=== PATIENT | male | born 1990 | race Hispanic/Latino ===

== ENCOUNTER 2016-12-31 10:55 | Observation (INO) | payer MEDICAID, OTHER ==
[2016-12-31 11:12] VITALS: BMI 27.3
--- NOTE | 2016-12-31 12:49 | ED PDOC ---
HPI: Psych/Substance Abuse Time Seen by Provider: 12/31/16 11:15 Chief Complaint (Nursing): Psychiatric Evaluation Chief Complaint (Provider): Crisis Evaluation History Per: Family (Sister) History/Exam Limitations: no limitations Onset/Duration Of Symptoms: Days (x 3 days) Additional History Per: Patient Additional Complaint(s): Nasir Morales is a 26-year-old male who was brought to the emergency department by his sister for a crisis evaluation, secondary to substance abuse and complaints of auditory and visual hallucinations ongoing for 3 days. Patient himself denies having any medical concerns. Sister reports that the patient has been using substances including the drug Priya and cocaine, and experiences night auditory and visual hallucinations. Patient states he last used Priya 3 weeks ago. Sister states the patient was admitted 2 years ago for similar concerns. Patient is currently on house arrest. PMD: None known Past Medical History Reviewed: Historical Data, Nursing Documentation, Vital Signs Vital Signs: Last Vital Signs Temp 99.5 F 12/31/16 12:00 Pulse 104 H 12/31/16 12:00 Resp 20 12/31/16 12:00 BP 136/90 12/31/16 12:00 Pulse Ox 100 12/31/16 12:00 - Medical History PMH: Asthma (childhood) Denies: Diabetes, Hepatitis, HIV, HTN, Chronic Kidney Disease, Seizures, Sexually Transmitted Disease - Surgical History Surgical History: No Surg Hx - Family History Family History: States: Unknown Family Hx - Social History Current smoker - smoking cessation education provided: Yes Alcohol: Social Drugs: Cocaine, Other (Priya) - Immunization History Hx Tetanus Toxoid Vaccination: No Hx Influenza Vaccination: No Hx Pneumococcal Vaccination: No - Home Medications Home Medications: Ambulatory Orders Medication Instructions Recorded Albuterol HFA [Ventolin HFA 90 2 puff IH Q4H #1 puff 08/20/15 mcg/actuation (8 g)] Polymyxin/Trimethoprim Sulfate 1 drop XX Q6H 10 Days 09/28/15 [Polytrim Ophth Soln] Ibuprofen 600 mg PO Q6 PRN #15 tablet 12/12/15 Nitrofurantoin Macrocrystals 100 mg PO BID 5 Days 01/01/17 [Macrobid] - Allergies Allergies/Adverse Reactions: Allergies Allergy/AdvReac Type Severity Reaction Status Date / Time shrimp Allergy RASH Verified 12/31/16 13:01 Review of Systems ROS Statement: Except As Marked, All Systems Reviewed And Found Negative Psych: Positive for: Other (Unable to sleep, night auditory and visual hallucinations). Negative for: Suicidal ideation (and homicidal ideation) Physical Exam - Reviewed Nursing Documentation Reviewed: Yes Vital Signs Reviewed: Yes - Physical Exam Appears: Positive for: Well, Non-toxic, No Acute Distress Head Exam: Positive for: ATRAUMATIC, NORMAL INSPECTION, NORMOCEPHALIC Skin: Positive for: Normal Color, Warm, Dry Eye Exam: Positive for: Normal appearance Neck: Positive for: Normal, Painless ROM Cardiovascular/Chest: Positive for: Regular Rate, Rhythm Respiratory: Positive for: CNT, Normal Breath Sounds Gastrointestinal/Abdominal: Positive for: Normal Exam, Bowel Sounds, Soft. Negative for: Tenderness Back: Positive for: Normal Inspection Extremity: Positive for: Normal ROM Neurologic/Psych: Positive for: Alert, Oriented - Laboratory Results Result Diagrams: 12/31/16 20:37 12/31/16 20:37 - ECG O2 Sat by Pulse Oximetry: 100 (RA) Pulse Ox Interpretation: Normal Medical Decision Making Medical Decision Making: Time: 13:00 Initial Impression: Crisis Evaluation Initial Plan: * Admit to observation for crisis evaluation Time: 13:01 * Urine Drug Screen * Scribe Attestation: Documented by Shannan Dupont, acting as a scribe for Zakia Alford MD. Provider Scribe Attestation: All medical record entries made by the Scribe were at my direction and personally dictated by me. I have reviewed the chart and agree that the record accurately reflects my personal performance of the history, physical exam, medical decision making, and the department course for this patient. I have also personally directed, reviewed, and agree with the discharge instructions and disposition. ED OBSERVATION Date of observation admission: 12/31/16 Time of observation admission: 13:00 - Observation admission statement Patient is being placed in observation because:: Crisis evaluation - Progress Note Progress Note: 12/31/16 13:20 * Toxicology results positive for cocaine metabolites and THC 12/31/16 14:45 * CMP * Urine dipstick * CBC * CXR * Macrobid 100 mg PO * Urinalysis Disposition - Clinical Impression Clinical Impression: UTI (urinary tract infection), Drug-induced psychotic disorder - Disposition Disposition: Transfer of Care Disposition Time: 17:00 Condition: STABLE Patient Signed Over To: Cynthia Tierney Handoff Comments: Pending medical clearance and [facility] screening.
[2016-12-31 13:54] LABS: BARBITURATES, UR NEGATIVE (NEGATIVE); BENZODIAZEPINES, UR NEGATIVE (NEGATIVE); OPIATES, UR NEGATIVE (NEGATIVE); PHENCYCLIDINE, UR NEGATIVE (NEGATIVE)
[2016-12-31 14:49] LABS: BASO # 0.1 K/uL (0.0-0.2); BASO % 0.4 % (0.0-2.0); EOS # 0.1 K/uL (0.0-0.7); EOS % 0.4 % (0.0-4.0); LYMPH # 3.1 K/uL (1.0-4.3); LYMPH % 15.6 % (20.0-40.0); MEAN CELL VOLUME 86.6 fl (80.0-94.0); MEAN CORPUSCULAR HEMOGLOBIN 29.8 pg (27.0-31.0); MEAN CORPUSCULAR HGB CONC 34.4 g/dL (33.0-37.0); MEAN PLATELET VOLUME 8.4 fl (7.2-11.7); MONO # 2.1 K/uL (0.0-0.8); MONO % 10.8 % (0.0-10.0); NEUT # 14.4 K/uL (1.8-7.0); NEUT % 72.8 % (50.0-75.0); NRBC % 0.1 % (0.0-0.0); RBC 5.05 Mil/uL (4.40-5.90); RED CELL DISTRIBUTION WIDTH 13.1 % (11.5-14.5); WHITE BLOOD COUNT 19.7 K/uL (4.8-10.8)
[2016-12-31 15:03] LABS: SQUAMOUS EPITHIAL < 1 /hpf (0-5); URINE BACTERIA OCC (<OCC); URINE BILIRUBIN NEGATIVE (NEGATIVE); URINE BLOOD SMALL (NEGATIVE); URINE CLARITY SLIGHTY-CLOUDY (Clear); URINE COLOR YELLOW (YELLOW); URINE GLUCOSE (UA) NEG (Normal); URINE LEUKOCYTE ESTERASE SMALL Leu/uL (Negative); URINE NITRATE NEGATIVE (NEGATIVE); URINE PROTEIN 30 mg/dL (NEGATIVE); URINE UROBILINOGEN 0.2-1.0 mg/dL (0.2-1.0)
[2016-12-31 15:10] LABS: ALB/GLOB RATIO 1.6 (1.0-2.1); ALBUMIN 4.9 g/dL (3.5-5.0); ALT/SGPT 46 U/L (21-72); AST/SGOT 75 U/L (17-59); BLOOD UREA NITROGEN 16 mg/dl (9-20); CALCIUM 9.5 mg/dL (8.4-10.2); GFR AFRICAN-AMERICAN > 60; GFR NON-AFRICAN AMERICAN > 60
[2016-12-31] MEDS ORDERED: Potassium Chloride 20 mEq ER Tab PO STA ×2 (16:53→21:39)
[2016-12-31 17:00] VITALS: TEMP 98
--- NOTE | 2016-12-31 17:20 | ED PDOC ---
- Laboratory Results Result Diagrams: 12/31/16 20:37 12/31/16 20:37 - ECG ECG Rhythm: Positive for: Normal QRS, Normal ST Segment, Sinus Rhythm (normal) O2 Sat by Pulse Oximetry: 100 (RA) Pulse Ox Interpretation: Normal Medical Decision Making Medical Decision Makin:18 Patient signed over pending medical clearance for [facility] WBC elevated -UA demonstrated UTI. Macrobid ordered and can be continued outpatient -CXR negative for infiltrate or effusion -Repeat WBC stable Potassium minimally below normal -Potassium supplements given -EKG NSR no conduction abnormalities, narrow QRS -Repeat Potassium stable Pt is medically stable for psychiatric admission. Scribe Attestation: Documented by Iraseam Chen, acting as a scribe for Cynthia Tierney MD. Provider Scribe Attestation: All medical record entries made by the Scribe were at my direction and personally dictated by me. I have reviewed the chart and agree that the record accurately reflects my personal performance of the history, physical exam, medical decision making, and the department course for this patient. I have also personally directed, reviewed, and agree with the discharge instructions and disposition. Disposition - Clinical Impression Clinical Impression: UTI (urinary tract infection), Drug-induced psychotic disorder - POA Present On Arrival: None - Disposition Disposition: Transfer of Care Disposition Time: 13:00 Condition: STABLE Patient Signed Over To: Rex Henriquez Handoff Comments: @12am Pending Crisis evaluation and final ER disposition
[2016-12-31] MEDS ORDERED: Potassium Chloride 20 mEq ER Tab PO ONE ×3 (18:37→22:46)
[2016-12-31 19:33] LABS: SALICYLATE < 1.0 mg/dl
[2016-12-31 19:35] LABS: ACETAMINOPHEN < 10.0 ug/ml (10.0-30.0)
[2016-12-31 20:43] LABS: BASO # 0.1 K/uL (0.0-0.2); BASO % 0.5 % (0.0-2.0); EOS # 0.2 K/uL (0.0-0.7); EOS % 0.9 % (0.0-4.0); LYMPH # 3.5 K/uL (1.0-4.3); LYMPH % 18.5 % (20.0-40.0); MEAN CELL VOLUME 88.6 fl (80.0-94.0); MEAN CORPUSCULAR HEMOGLOBIN 29.3 pg (27.0-31.0); MEAN CORPUSCULAR HGB CONC 33.1 g/dL (33.0-37.0); MEAN PLATELET VOLUME 8.5 fl (7.2-11.7); MONO # 1.8 K/uL (0.0-0.8); MONO % 9.5 % (0.0-10.0); NEUT # 13.3 K/uL (1.8-7.0); NEUT % 70.6 % (50.0-75.0); RBC 5.11 Mil/uL (4.40-5.90); WHITE BLOOD COUNT 18.9 K/uL (4.8-10.8)
[2016-12-31 20:56] LABS: BLOOD UREA NITROGEN 14 mg/dl (9-20); CALCIUM 9.5 mg/dL (8.4-10.2); GFR AFRICAN-AMERICAN > 60; GFR NON-AFRICAN AMERICAN > 60
--- NOTE | 2017-01-01 02:05 | ED PDOC ---
- Laboratory Results Result Diagrams: 12/31/16 20:37 12/31/16 20:37 - ECG O2 Sat by Pulse Oximetry: 100 (RA) Medical Decision Making Medical Decision Makin: PT. seen at bedside, pleasant, awake, alert. 200: Pt. to be discharged w/ dx: of susbtance induced psychotic disorder. Leukocytosis 2/2 to substance ingestion likely. Disposition - Clinical Impression Clinical Impression: UTI (urinary tract infection), Psychosis - POA Present On Arrival: None - Disposition Disposition: Routine/Home Disposition Time: 02:05 Condition: STABLE
[2017-01-01 02:18] VITALS: BP 139/78; PULSE 69; RESP 16
--- NOTE | 2017-01-01 07:30 | CARD ---
APPROVED REPORT EKG Measurement Heart [id number] <Conclusion> Normal sinus rhythm Normal ECG
--- NOTE | 2017-01-01 12:16 | RAD ---
HISTORY: Medical clearance. Portable study 07:19 COMPARISON: 08/20/2015 FINDINGS: LUNGS: No active pulmonary disease. PLEURA: No significant pleural effusion identified, no pneumothorax apparent. CARDIOVASCULAR: Normal. OSSEOUS STRUCTURES: No significant abnormalities. VISUALIZED UPPER ABDOMEN: Normal. OTHER FINDINGS: None. IMPRESSION: No active disease. No significant interval change compared to the prior examination(s).
[2017-01-01 15:52] VITALS: O2SAT 100
== END 2017-01-01 02:04 | disposition home or self-care (01) ==
LOC: H.ER 10:55 → H.EROBSV 13:00
PROVIDERS: ADMIT Emergency Medicine; ATTEND Emergency Medicine
DX: F19.959 Other psychoactive substance use, unspecified with psychoactive substance-induced psychotic disorder, unspecified (principal); F17.200 Nicotine dependence, unspecified, uncomplicated; J45.909 Unspecified asthma, uncomplicated; N39.0 Urinary tract infection, site not specified
CPT/HCPCS: 36415; 71010; 80053; 81003; 85025; 93005; 99283; G0378; G0480